=== PATIENT | male | born 1950 | race Caucasian/White ===

== ENCOUNTER → 2018-06-21 09:42 | Outpatient (CLI) | payer OTHER, SELFPAY ==
--- NOTE | 2018-06-21 | DI.US.S_ITS ---
PROCEDURE: US CAROTID DOPPLER BI INDICATIONS: ATHEROSCLEROTIC HEART DISEASE TECHNIQUE: Color and pulse Doppler interrogation was performed of both carotid systems, with image documentation and velocity measurements. COMPARISON: None. FINDINGS: Stenosis calculations are based on SRU (S[employer] in Ul[employer]) criteria. Right side: Brachial blood pressure: 132/80 mm Hg. Common carotid artery peak systolic velocity: 85 cm/sec. Internal carotid artery peak systolic velocity: 88 cm/sec. Internal carotid artery end diastolic velocity: 34 cm/sec. External carotid artery peak systolic velocity: 64 cm/sec. ICA/CCA peak systolic ratio: 1.03. [place] scale imaging description: Mild echogenic plaque Percent internal carotid artery stenosis: Less than 50%. Vertebral artery: Flow direction is antegrade. Left side: Brachial blood pressure: 131/86 mm Hg. Common carotid artery peak systolic velocity: 101 cm/sec. Internal carotid artery peak systolic velocity: 74 cm/sec. Internal carotid artery end diastolic velocity: 26 cm/sec. External carotid artery peak systolic velocity: 71 cm/sec. ICA/CCA peak systolic ratio: 0.74. [place] scale imaging description: Mild echogenic plaque Percent internal carotid artery stenosis: Less than 50%. Vertebral artery: Flow direction is antegrade. IMPRESSION: Mild bilateral carotid artery disease with less than 50% stenosis on both sides. Dictated by: Danie Solano M.D. on 06/21/2018 at 11:31 Approved by: Danie Solano M.D. on 06/21/2018 at 11:33
== END ==
PROVIDERS: PCP Family Medicine; Visit Provider Family Medicine
DX: I65.23 Occlusion and stenosis of bilateral carotid arteries (principal); I25.10 Atherosclerotic heart disease of native coronary artery without angina pectoris
CPT/HCPCS: 93880

== ENCOUNTER → 2018-07-31 11:13 | Outpatient (CLI) | payer OTHER, SELFPAY ==
--- NOTE | 2018-07-31 | DI.MRI.S_ITS ---
PROCEDURE: MR KNEE RT WO CON INDICATIONS: RIGHT KNEE PAIN POST INJURY TECHNIQUE: Noncontrast sagittal PD fast spin echo and T2 fast spin echo with fat saturation, sagittal 3-D FLASH with fat saturation; coronal T1 spin echo and PD fast spin echo with fat saturation, and axial PD fast spin echo with fat saturation through the knee. COMPARISON: None. FINDINGS: Image quality: Motion artifacts sagittal FLASH images. Menisci: There is horizontal tear involving the body of the lateral meniscus. There is increased T2 involving the body and posterior horn of the medial meniscus, extending to the inferior articular surface, consistent with degenerative tear. The meniscal root ligaments appear intact. Cruciate ligaments: The anterior and posterior cruciate ligaments appear intact. Medial structures: The medial collateral ligament appears intact. The posterior oblique ligament, semimembranosus tendon insertions, oblique popliteal ligament, and meniscocapsular junction appear intact. Visualized portions of the pes anserinus tendons appear normal. No abnormal bursal fluid. Lateral structures: The lateral collateral ligament, long and short heads of the biceps femoris tendon appear intact. The popliteus tendon appears normal. Iliotibial band appears normal. There is a mild edema in the posterior lateral joint capsule. Anterior structures: The quadriceps and patellar tendons appear intact. Patellar alignment is normal. No femoral trochlear dysplasia or ventral trochlear prominence. No edema in the infrapatellar fat pad. Bones and cartilage: No bone marrow contusions or fractures. There is mild tricompartmental cartilage fibrillation. Joint space: There is knee joint effusion. Tiny Mendes's cyst. Normal appearing synovial plicae are incidentally noted. IMPRESSION: 1. Horizontal tear of the body of the lateral meniscus. 2. Degenerative tear of the body and posterior horn of the medial meniscus. 3. Mild edema in the posterior lateral joint capsule. The popliteus tendon appears intact. 4. Small knee joint effusion. 5. Mild tricompartmental cartilage fibrillation. Dictated by: Scotty Gao M.D. on 07/31/2018 at 13:09 Approved by: Scotty Gao M.D. on 08/01/2018 at 10:03
== END ==
PROVIDERS: PCP Family Medicine; Visit Provider Family Medicine
DX: S83.281A Other tear of lateral meniscus, current injury, right knee, initial encounter (principal); M23.221 Derangement of posterior horn of medial meniscus due to old tear or injury, right knee; M25.561 Pain in right knee; M25.461 Effusion, right knee
CPT/HCPCS: 73721